=== PATIENT | female | born 1975 | race African-American/Black ===

== ENCOUNTER 2025-09-16 18:35 | Emergency (ER) | payer OTHER, MEDICAID ==
[~2025-09-16] VITALS: Ht 167.6 cm; Wt 73.0 kg
[2025-09-16] MEDS: MORPHINE SULFATE 4 MG/ML INJ (FOR IV/IM USE) IV ONE ×2 (19:36→21:47)
[2025-09-16 21:25] VITALS: O2SAT 100
[2025-09-16] MEDS: MIDAZOLAM HCL 2 MG/2 ML VIAL IV STA (21:25)
[2025-09-16] MEDS: KETAMINE HCL 50 MG/ML 10ML IV ONE (21:30)
[2025-09-16 21:36] LABS: BASOPHILS % 0.5 % (0.0-2.0); EOSINOPHILS % 0.2 % (0.0-5.0); HEMATOCRIT. 37.5 % (36.0-48.0); HEMOGLOBIN. 12.1 g/dL (12.0-16.0); LYMPHOCYTES % 12.6 % (20.0-50.0); MEAN PLATELET VOLUME 8.8 fl (7.4-10.4); MONOCYTES % 8.7 % (2.0-8.0); NEUTROPHILS % 78.0 % (40.0-76.0); PLATELET 208 x1000/uL (130-400); RED BLOOD CELL COUNT 4.23 mill/uL (4.2-5.4); RED CELL DISTRIBUTION WIDTH 13.7 % (11.6-14.6)
[2025-09-16 21:53] LABS: HCG SCREEN NEGATIVE
[2025-09-16 21:54] LABS: CREATININE 0.8 mg/dL (0.6-1.0); UREA NITROGEN BLOOD 6 mg/dL (9-23)
[2025-09-17] MEDS: IOHEXOL-350 100 ML BOTTLE ONE (00:51)
[2025-09-17 04:18] VITALS: BP 136/81; PULSE 85; RESP 16; TEMP 36.9; O2SAT 100
== END 2025-09-17 04:25 | disposition short-term general hospital (02) ==
LOC: ER 19:19 → CMPBEDREQ 09-18 07:54
DX: S82.832A Other fracture of upper and lower end of left fibula, initial encounter for closed fracture (principal); S72.001A Fracture of unspecified part of neck of right femur, initial encounter for closed fracture; D64.9 Anemia, unspecified; V03.10XA Pedestrian on foot injured in collision with car, pick-up truck or van in traffic accident, initial encounter; X58.XXXA Exposure to other specified factors, initial encounter; Y93.01 Activity, walking, marching and hiking; Y92.410 Unspecified street and highway as the place of occurrence of the external cause; Y99.8 Other external cause status
CPT/HCPCS: 99285; 71275; 74174; 27788; 96374; 80048; 84703; 85025; 36415; 73552; 72170; 73030; 73060; 73070; 73560; 73590; 73600; 70450; 72125; 96376; 99152; J3490; J2250; J2270; Q9967